=== PATIENT | female | born 1985 | race Caucasian/White ===

== ENCOUNTER 2020-10-07 04:08 | Emergency (ER) | payer BC ==
[~2020-10-07] VITALS: Ht 170.2 cm; Wt 60.0 kg
[2020-10-07] MEDS ORDERED: ONDANSETRON 2MG/ML, 2ML ONE (04:13)
--- NOTE | 2020-10-07 04:23 | NUR ---
PT BIB [facility] TO ROOM 3. PT FOUND AT THE [employer] IN THE BATHROOM, HUGGING THE TOILET AND VOMITTING. PTS FRIENDS LEFT HER, AND SHE DRANK A LOT PER THE EMS STORY. PT RESPONDS TO QUESTIONS WITH HEAD NODS OF YES OR NO. PT CALM AND COOPERATIVE, AND PLACED ON O2 SAT PROBE AND BP CUFF. PT HAS AN 18G PIV TO RIGHT HAND. MD TO BEDSIDE TO JUNITO PT. MEDS ORDERED AND ADMINISTERED PER EMAR. PT RESTING ON HER SIDE, AIRWAY INTACT, GOOD AERATION AND OXYGENATION. O2 SAT IS 97%
[2020-10-07] MEDS ORDERED: SODIUM CHLORIDE FLUSH 10ML SYR IVF ONE (04:30)
[2020-10-07] MEDS ORDERED: ONDANSETRON 2MG/ML, 2ML IVPush ONE (04:30)
--- NOTE | 2020-10-07 06:03 | NUR ---
PT SLEEPING ON RIGHT LATERAL SIDE, VOMIT BAG NEAR FACE, NON OBSTRUCTING. VSS.
--- NOTE | 2020-10-07 07:08 | NUR ---
REPORT RECEIVED FROM LINDA PALMER
--- NOTE | 2020-10-07 07:36 | NUR ---
PT RESTING IN BED, VSS, NADN.
--- NOTE | 2020-10-07 08:53 | NUR ---
PT RESTING IN BED, VSS, NADN. BREAKFAST TRAY PROVIDED.
--- NOTE | 2020-10-07 10:32 | NUR ---
PT A&0, RESPS EVEN AND UNLABORED, VSS, NADN. DISCHARGE INSTRUCTIONS REVIEWED, PT VERBALIZED UNDERSTANDING. AMBULATORY TO DISCHARGE DESK WITH STEADY GAIT Addendum: 10/07/20 at 1034 by OBED PT A&O, SHANNAN SI/HI, RESPS EVEN AND UNLABORED, VSS, NADN. DISCHARGE INSTRUCTIONS REVIEWED, PT VERBALIZED UNDERSTANDING. AMBULATORY TO DISCHARGE DESK WITH STEADY GAIT
[2020-10-07 10:33] VITALS: BP 95/62
== END 2020-10-07 10:36 | disposition home or self-care (01) ==
LOC: ED 10:00
DX: F10.120 Alcohol abuse with intoxication, uncomplicated (principal); G31.2 Degeneration of nervous system due to alcohol; R11.2 Nausea with vomiting, unspecified; Y90.0 Blood alcohol level of less than 20 mg/100 ml
CPT/HCPCS: 96374; 99285; J2405